=== PATIENT | male | born 1995 | race Caucasian/White ===

== ENCOUNTER 2017-08-15 16:00 | Emergency (ER) | payer MEDICAID, OTHER ==
[~2017-08-15] VITALS: Ht 175.3 cm; Wt 60.0 kg
[2017-08-15 16:01] VITALS: BP 109/74
[2017-08-15] MEDS ORDERED: ONDANSETRON ODT 4 MG PO ONE (16:30)
[2017-08-15] MEDS ORDERED: HYDROmorphone 1 MG/ML, 1ML IM ONE (16:30)
[2017-08-15] MEDS ORDERED: ONDANSETRON ODT 4 MG ONE (16:54)
[2017-08-15] MEDS ORDERED: HYDROmorphone 1 MG/ML, 1ML ONE (16:54)
== END 2017-08-15 19:09 | disposition home or self-care (01) ==
LOC: ED 19:01
DX: S09.90XA Unspecified injury of head, initial encounter (principal); S16.1XXA Strain of muscle, fascia and tendon at neck level, initial encounter; M54.6 Pain in thoracic spine; W01.0XXA Fall on same level from slipping, tripping and stumbling without subsequent striking against object, initial encounter; Y93.89 Activity, other specified; Y92.000 Kitchen of unspecified non-institutional (private) residence as the place of occurrence of the external cause; Y99.8 Other external cause status
CPT/HCPCS: 70450; 72125; 72128; 96372; 99284; J1170; Q0162